=== PATIENT | male | born 1995 | race Caucasian/White ===

== ENCOUNTER 2016-12-17 08:37 | Emergency (ER) | payer SELFPAY ==
[2016-12-17 08:46] VITALS: BP 116/75
[2016-12-17] MEDS ORDERED: Ondansetron 4 MG Tab.DIS PO ONE (09:04)
--- NOTE | 2016-12-17 10:01 | EDM.PDOC ---
ED HPI GENERAL MEDICAL PROBLEM - General Chief Complaint: Abdominal Pain Stated Complaint: [facility] Time Seen by Provider: 12/17/16 08:53 Source of Information: Reports: Patient, RN Notes Reviewed - History of Present Illness INITIAL COMMENTS - FREE TEXT/NARRATIVE: 21-year-old male has been brought in by [facility] right lower abdominal pain. He has had intermittent discomfort of the right lower abdomen for months but that has become much worse this morning. He does have history of what sounds like abdominal wall hernia. He states at times that there is a mass that bulges out. That usually is worse when he is up standing or walking and often goes down when he lies down. He states that the mass was, bulging this morning but now after lying on the cot with [facility] on arrival to ED that has reduced. He still continues to have moderate discomfort of the right lower abdomen. He has had some nausea. No vomiting fever or chills. No prior surgeries. Right Lower Abdomen Pain Score (Numeric/FACES): 4 - Related Data Allergies Allergy/AdvReac Type Severity Reaction Status Date / Time No Known Allergies Allergy Verified 12/17/16 08:46 Home Meds: Home Meds . [No Known Home Meds] 12/17/16 [History] Past Medical History - Past Health History Medical/Surgical History: Denies Medical/Surgical History Social & Family History - Tobacco Use Smoking Status *Q: Current Every Day Smoker Years of Tobacco use: 8 Packs/Tins Daily: 1.5 - Caffeine Use Caffeine Use: Reports: Coffee, Energy Drinks, Soda - Recreational Drug Use Recreational Drug Use: Yes Drug Use in Last 12 Months: Yes Recreational Drug Type: Reports: Marijuana/Hashish Recreational Drug Use Frequency: Binges Recreational Drug Last Use: 1 week ED ROS GENERAL - Review of Systems Review Of Systems: See Below Constitutional: Denies: Fever, Chills HEENT: Reports: No Symptoms Respiratory: Denies: Shortness of Breath Cardiovascular: Denies: Chest Pain GI/Abdominal: Reports: Abdominal Pain, Nausea. Denies: Diarrhea (Right lower quadrant), Vomiting Musculoskeletal: Reports: No Symptoms Skin: Reports: No Symptoms ED EXAM, GI/ABD - Physical Exam Exam: See Below General Appearance: Alert, No Apparent Distress Throat/Mouth: Normal Inspection Neck: Supple, Full Range of Motion Respiratory/Chest: No Respiratory Distress, Lungs Clear, Normal Breath Sounds Cardiovascular: Regular Rate, Rhythm GI/Abdominal Exam: Rebound (He does have mild rebound tenderness), Tender ( Moderate tenderness of the right lower quadrant, very mild tenderness of the left abdomen.). No: Guarding Back Exam: No: CVA Tenderness (L), CVA Tenderness (R) Extremities: Normal Inspection, Normal Range of Motion Course - Vital Signs Last Recorded V/S: Last Vital Signs Temp 98.4 F 12/17/16 08:42 Pulse 78 12/17/16 08:42 Resp 16 12/17/16 08:42 BP 116/75 12/17/16 08:42 Pulse Ox 97 12/17/16 08:42 - Orders/Labs/Meds Orders: Active Orders 24 hr Category Date Time Status Sodium Chloride 0.9% [Saline Flush] Med 12/17/16 10:04 Active 10 ml FLUSH ONETIME PRN Medication Orders Sodium Chloride (Saline Flush) 10 ml FLUSH ONETIME PRN PRN Reason: IV FLUSH Last Admin: 12/17/16 10:59 Dose: 10 ml Admin: 12/17/16 10:34 Dose: 10 ml Labs: Laboratory Tests 12/17/16 12/17/16 Range/Units 09:16 09:16 WBC 9.50 H (4.23-9.07) K/mm3 RBC 5.18 (4.63-6.08) M/mm3 Hgb 15.5 (13.7-17.5) gm/L Hct 44.7 (40.1-51.0) % MCV 86.3 (79.0-92.2) fl MCH 29.9 (25.7-32.2) pg MCHC 34.7 (32.2-35.5) g/dl RDW Std Deviation 40.3 (35.1-43.9) fL Plt Count 221 (163-337) K/mm3 MPV 9.8 (9.4-12.3) fl Neut % (Auto) 74.9 H (34.0-67.9) % Lymph % (Auto) 14.6 L (21.8-53.1) % [place] % (Auto) 8.0 (5.3-12.2) % Eos % (Auto) 2.0 (0.8-7.0) Baso % (Auto) 0.4 (0.1-1.2) % Neut # (Auto) 7.11 H (1.78-5.38) K/mm3 Lymph # (Auto) 1.39 (1.32-3.57) K/mm3 [place] # (Auto) 0.76 (0.30-0.82) K/mm3 Eos # (Auto) 0.19 (0.04-0.54) K/mm3 Baso # (Auto) 0.04 (0.01-0.08) K/mm3 C-Reactive Protein 2.5 H* (<1.0) mg/dL Meds: Medications Generic Name Dose Route Start Last Admin Trade Name Freq PRN Reason Stop Dose Admin Sodium Chloride 10 ml 12/17/16 10:04 12/17/16 10:59 Saline Flush FLUSH 10 ml ONETIME PRN Administration IV FLUSH Discontinued Medications Generic Name Dose Route Start Last Admin Trade Name Freq PRN Reason Stop Dose Admin Diatrizoate Meglum/Diatrizoate Sod 120 ml 12/17/16 10:04 12/17/16 10:58 Gastrografin 37% PO 12/17/16 10:05 90 ml ONETIME ONE Administration Iopamidol 150 ml 12/17/16 10:04 12/17/16 10:58 Isovue-300 (61%) IVPUSH 12/17/16 10:05 110 ml ONETIME ONE Administration Ondansetron HCl 4 mg 12/17/16 09:04 12/17/16 09:10 Zofran Odt PO 12/17/16 09:05 4 mg ONETIME ONE Administration - Re-Assessments/Exams Free Text/Narrative Re-Assessment/Exam: 12/17/16 10:07 White blood count C-reactive protein both very mildly elevated. His hernia reduced prior to arrival. However he continues to be very tender right lower quadrant. He does have some rebound tenderness as well. With his inflammatory markers elevated need to proceed with abdominal and pelvic CT to rule out acute or subacute appendicitis. 12/17/16 11:53. CT of abdomen negative for appendicitis, see report for details. Departure - Departure Time of Disposition: 11:54 Disposition: Home, Self-Care 01 Condition: Fair Clinical Impression: Hernia Abdominal pain Qualifiers: Abdominal location: right lower quadrant Qualified Code(s): R10.31 - Right lower quadrant pain - Discharge Information Forms: ED Department Discharge Additional Instructions: By history you have an abdominal wall hernia, rest and lie down as needed to reduce that when it does bulge out. Try using the Deric wrap provided to provide additional support to that area. See a family physician type provider or general surgeon when you get back home to work out a plan for getting that repaired. - My Orders Last 24 Hours: My Active Orders 12/17/16 10:04 Sodium Chloride 0.9% [Saline Flush] 10 ml FLUSH ONETIME PRN - Assessment/Plan Last 24 Hours: My Active Orders 12/17/16 10:04 Sodium Chloride 0.9% [Saline Flush] 10 ml FLUSH ONETIME PRN
[2016-12-17] MEDS ORDERED: Iopamidol 612 MG/ML 150 ML Bottle IVPUSH ONE (10:04)
[2016-12-17] MEDS ORDERED: Diatrizoate Meglumine/Diatrizoate Sodium 37% 120 ML Bottle PO ONE (10:04)
[2016-12-17] MEDS: Sodium Chloride 0.9% 10 ML Syringe FLUSH PRN ×2 (10:34→10:59)
--- NOTE | 2016-12-17 11:48 | CT ---
CT abdomen and pelvis Technique: Multiple axial sections were obtained from above the dome of the diaphragm inferiorly through the pubic symphysis. Intravenous and oral contrast was utilized. Delayed images were obtained through the bladder. Comparison: No previous abdominal imaging. Findings: Visualized lung bases shows nothing acute. Liver shows no focal parenchymal abnormality. Spleen appears within normal limits. Adrenal glands show no nodule. Kidneys show symmetric contrast enhancement without hydronephrosis or mass. Pancreas appears within normal limits. Gallbladder shows no calcified gallstones. Aorta shows no aneurysmal dilatation. No retroperitoneal adenopathy is seen. Appendix is felt to be visualized and appears normal in size. No pelvic mass or adenopathy is seen. No inflammatory change or free fluid is seen. Mild increased stool is seen throughout the colon including the rectum. Delayed images shows contrast within the bladder. Bone window settings were reviewed which appears within normal limits for the patient's age. Impression: 1. Increased stool within the colon. 2. Nothing acute is identified on CT study of the abdomen and pelvis. Diagnostic code #2
== END 2016-12-17 13:20 | disposition home or self-care (01) ==
LOC: JD.ED 08:37
DX: K46.9 Unspecified abdominal hernia without obstruction or gangrene (principal); R10.31 Right lower quadrant pain; F17.210 Nicotine dependence, cigarettes, uncomplicated
CPT/HCPCS: 36415; 74177; 85025; 86140; 99285; A9270; J7050; Q9963; Q9967; 99284